=== PATIENT | male | born 1985 | race Caucasian/White ===

== ENCOUNTER 2016-03-15 19:51 | Emergency (ER) | payer OTHER ==
[2016-03-15] MEDS ORDERED: FENTANYL CITRATE INJ/PF 100 MCG/2 ML AMPUL IV ONE (20:12)
[2016-03-15] MEDS ORDERED: DIPH/PERTUSS(ACELL)/TETANUS VAC/PF 0.5 ML SYR (>=10YO) IM ONE (20:12)
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
[2016-03-15 21:13] LABS: ABSOLUTE EOSINOPHILS # (AUTO) 0.1 10^3/uL (0.0-0.6); ABSOLUTE LYMPHOCYTES (AUTO) 1.5 10^3/uL (0.5-4.7); ABSOLUTE MONOCYTES (AUTO) 0.4 10^3/uL (0.1-1.4); ABSOLUTE NEUT (AUTO) 3.2 10^3/uL (1.7-8.2); BASOPHILS % (AUTO) 0.8 % (0-2); EOSINOPHILS % (AUTO) 1.2 % (0-6); HEMATOCRIT 46.2 % (37.9-51.0); HEMOGLOBIN 14.7 g/dL (13.5-17.0); HGB HCT DIFFERENCE -2.1; LYMPHOCYTES % (AUTO) 28.8 % (13-45); MEAN CORPUSCULAR HEMOGLOBIN 30.6 pg (27.0-33.4); MEAN CORPUSCULAR HGB CONC 31.8 g/dL (32.0-36.0); MEAN CORPUSCULAR VOLUME 96 fl (80-97); MONOCYTES % (AUTO) 6.9 % (3-13); RED CELL DISTRIBUTION WIDTH 13.2 % (11.5-14.0); SEGMENTED NEUTROPHILS % (AUTO) 62.3 % (42-78); WHITE BLOOD COUNT 5.1 10^3/uL (4.0-10.5)
[2016-03-15 21:32] LABS: ALANINE AMINOTRANSFERASE 32 U/L (21-72); ALBUMIN 4.5 g/dL (3.5-5.0); ALKALINE PHOSPHATASE 47 U/L (38-126); ANION GAP 18 (5-19); ASPARTATE AMINO TRANSFERASE 33 U/L (17-59); BILIRUBIN,TOTAL 0.6 mg/dL (0.2-1.3); BLOOD UREA NITROGEN 13 mg/dL (7-20); CALCIUM 8.9 mg/dL (8.4-10.2); CARBON DIOXIDE 19 mmol/L (22-30); CHLORIDE 108 mmol/L (98-107); CREATININE RESULT 1.12 mg/dL (0.52-1.25); GLUCOSE 129 mg/dL (75-110); POTASSIUM 4.6 mmol/L (3.6-5.0); SODIUM 145.1 mmol/L (137-145)
[2016-03-15] MEDS ORDERED: KETOROLAC TROMETHAMINE INJ/PF 30 MG/1 ML SDV IV ONE (22:31)
[2016-03-15] MEDS ORDERED: OXYCODONE-ACETAMINOPHEN 5-325 MG TABLET PO ONE (22:31)
[2016-03-15] MEDS ORDERED: HYDROCODONE/ACETAMINOPHEN 5-325 MG 6 TAB/DSPK PO PRN (23:13)
== END 2016-03-16 00:13 | disposition home or self-care (01) ==
LOC: ER 19:51
DX: S06.9X9A Unspecified intracranial injury with loss of consciousness of unspecified duration, initial encounter (principal); S20.212A Contusion of left front wall of thorax, initial encounter; S39.91XA Unspecified injury of abdomen, initial encounter; V19.60XA Unspecified pedal cyclist injured in collision with unspecified motor vehicles in traffic accident, initial encounter; Y93.55 Activity, bike riding; R07.81 Pleurodynia; R55 Syncope and collapse; R10.12 Left upper quadrant pain; R10.32 Left lower quadrant pain; M25.532 Pain in left wrist; M25.572 Pain in left ankle and joints of left foot; R00.0 Tachycardia, unspecified; M54.5 Low back pain; M54.6 Pain in thoracic spine; M79.662 Pain in left lower leg; Z23 Encounter for immunization
CPT/HCPCS: 36415; 85025; 80053; 73610; 73590; 73110; 70450; 71260; 72125; 74177; J3010; J1885

== ENCOUNTER 2016-03-17 21:12 | Emergency (ER) | payer SELFPAY ==
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
[2016-03-17] MEDS ORDERED: OXYCODONE-ACETAMINOPHEN 5-325 MG TABLET PO ONE (23:29)
[2016-03-18 00:36] LABS: HEMATOCRIT 42.9 % (37.9-51.0); HEMOGLOBIN 14.4 g/dL (13.5-17.0); HGB HCT DIFFERENCE 0.3; MEAN CORPUSCULAR HEMOGLOBIN 31.1 pg (27.0-33.4); MEAN CORPUSCULAR HGB CONC 33.6 g/dL (32.0-36.0); MEAN CORPUSCULAR VOLUME 93 fl (80-97); RED BLOOD COUNT 4.64 10^6/uL (4.35-5.55); RED CELL DISTRIBUTION WIDTH 12.8 % (11.5-14.0); WHITE BLOOD COUNT 5.8 10^3/uL (4.0-10.5)
[2016-03-18 01:26] VITALS: BP 102/76
--- NOTE | 2016-03-18 11:02 | EKG REPORT ---
SEVERITY:- NORMAL ECG - SINUS RHYTHM ST ELEV, PROBABLE NORMAL EARLY REPOL PATTERN : Confirmed by: Marky Chowdary MD 18-Mar-2016 11:01:40
== END 2016-03-18 01:27 | disposition home or self-care (01) ==
LOC: ER 21:12
DX: S20.212A Contusion of left front wall of thorax, initial encounter (principal); R55 Syncope and collapse; R07.81 Pleurodynia; R42 Dizziness and giddiness; M25.512 Pain in left shoulder; M25.552 Pain in left hip; W19.XXXA Unspecified fall, initial encounter
CPT/HCPCS: 36415; 85027; 93005; 93010; 99284

== ENCOUNTER 2016-08-21 10:51 | Emergency (ER) | payer SELFPAY ==
[2016-08-21] MEDS ORDERED: TRAMADOL HCL 50 MG TABLET PO ONE (11:52)
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
--- NOTE | 2016-08-21 12:52 | RADIOLOGY REPORT (SQ) ---
EXAM DESCRIPTION: SHOULDER LEFT 2 OR MORE VIEWS COMPLETED DATE/TIME: 08/21/2016 12:34 pm REASON FOR STUDY: pain, had a AC unit fall on him COMPARISON: None. NUMBER OF VIEWS: Three views. TECHNIQUE: Internal rotation, external rotation, and Y view images acquired of the left shoulder. LIMITATIONS: None. FINDINGS: MINERALIZATION: Normal. BONES: No acute fracture or dislocation. No worrisome bone lesions. JOINTS: No dislocation. VISUALIZED LUNGS AND RIBS: No pneumothorax. No rib fracture. SOFT TISSUES: No radiopaque foreign body. OTHER: No other significant finding. IMPRESSION: NEGATIVE STUDY OF THE LEFT SHOULDER. NO RADIOGRAPHIC EVIDENCE OF ACUTE INJURY. TECHNICAL DOCUMENTATION: JOB ID: [id number] [employer]- All Rights Reserved
--- NOTE | 2016-08-21 13:31 | ER Document Report ---
HPI - HPI Patient complains to provider of: left arm pain Onset: Just prior to arrival - had an AC unit fall on his left shoulder and arm Onset/Duration: Sudden Quality of pain: Achy, Sharp, Stabbing Pain Level: 5 Exacerbated by: Movement, Walking Relieved by: Remaining still Similar symptoms previously: No Recently seen / treated by doctor: No - CARDIOVASCULAR Cardiovascular: DENIES: Chest pain - REPRODUCTIVE Reproductive: DENIES: : - DERM Skin Color: Normal Past Medical History - Social History Smoking Status: Never Smoker Chew tobacco use (# tins/day): No Frequency of alcohol use: None Drug Abuse: None Family History: Arthritis, CVA, Hypertension Patient has suicidal ideation: No Patient has homicidal ideation: No Pulmonary Medical History: Reports: Hx Bronchitis, Hx Pneumonia Renal/ Medical History: Denies: Hx Peritoneal Dialysis GI Medical History: Reports: Hx Gastroesophageal Reflux Disease, Hx Irritable Bowel, Hx Ulcer, Hx Endoscopy Musculoskeltal Medical History: Reports Hx Musculoskeletal Deformity, Reports Hx Musculoskeletal Trauma Psychiatric Medical History: Reports: Hx Anxiety, Hx Depression - anxiety, panic attacks Traumatic Medical History: Reports: Hx Fractures - Left elbow and point rotator cuff Surgical Hx: Negative - Immunizations Immunizations up to date: Yes Hx Diphtheria, Pertussis, Tetanus Vaccination: Yes Vertical Provider Document - CONSTITUTIONAL Agree With Documented VS: Yes Exam Limitations: No Limitations General Appearance: WD/WN, No Apparent Distress - INFECTION CONTROL TRAVEL OUTSIDE OF THE [place] IN LAST 30 DAYS: No - HEENT HEENT: Atraumatic, Normocephalic - RESPIRATORY O2 Sat by Pulse Oximetry: 98 - CARDIOVASCULAR Pulses: Normal: Radial Notes: cap refill < 2 seconds - MUSCULOSKELETAL/EXTREMETIES Musculoskeletal/Extremeties: Tender - along anterior shoulder and arm, No Edema. negative: Eccymosis - ROM intact but guarded 2/2 pain - NEURO Level of Consciousness: Awake, Alert, Appropriate Motor/Sensory: No Motor Deficit, No Sensory Deficit - DERM Integumentary: Warm, Dry, No Rash. negative: Laceration Course - Re-evaluation Re-evalutation: 08/21/16 13:28 Evidence of fracture dislocation noted on x-ray. Patient placed in sling for comfort given shoulder exercises instruction to follow-up with primary care. - Vital Signs Vital signs: Temp Pulse Resp BP Pulse Ox 99.7 F 105 H 20 132/90 H 98 08/21/16 11:00 08/21/16 11:00 08/21/16 11:00 08/21/16 11:00 08/21/16 11:00 - Diagnostic Test Radiology reviewed: Image reviewed, Reports reviewed Discharge - Discharge Clinical Impression: Shoulder injury, Contusion Condition: Good Disposition: HOME, SELF-CARE Instructions: Contusion ([facility]), Crush Injury ([facility]), Exercise Program for the Shoulder ([facility]), Ice Packs ([facility]) Prescriptions: Tramadol HCl 50 mg PO Q8HP PRN #10 tablet PRN Reason: Ibuprofen [Motrin 800 mg Tablet] 800 mg PO Q8H PRN #30 tab PRN Reason: Forms: Elevated Blood Pressure, Return to Work, Special Work Note Referrals: [facility] [Provider Group] - Follow up as needed
[2016-08-21 15:23] VITALS: BP 132/78
== END 2016-08-21 13:30 | disposition home or self-care (01) ==
LOC: ER 10:51
DX: S40.019A Contusion of unspecified shoulder, initial encounter (principal); W20.8XXA Other cause of strike by thrown, projected or falling object, initial encounter; Y93.89 Activity, other specified; Y99.0 Civilian activity done for income or pay; Z87.81 Personal history of (healed) traumatic fracture
CPT/HCPCS: 99283

== ENCOUNTER 2016-09-13 19:11 | Inpatient (IN) | payer SELFPAY ==
[2016-09-13] MEDS ORDERED: NORMAL SALINE 1000 ML 2,000 ML IV ONE (19:28)
--- NOTE | 2016-09-13 19:30 | ER Document Report ---
ED General - General Stated Complaint: POSSIBLE HEAT EXHAUSTION Time Seen by Provider: 09/13/16 19:23 Notes: Patient is a 31-year-old male without past medical history who presents with diffuse muscle cramping and episode of syncope. Patient states he has been outside working all day today for approximately 12 hours. Describes his muscle cramping as being diffuse, moderate to severe and constant. States he has been trying to drink plenty of fluids but notes for the past 2 hours he is no longer been sweating and then when he was finishing up at work became extremely lightheaded and did have an episode of syncope. No history of similar symptoms in the past. Nothing has improved or worsened his symptoms. Denies any chest pain or shortness of breath. He has not seen his primary doctor regarding today 's concerns. TRAVEL OUTSIDE OF THE [place] IN LAST 30 DAYS: No - Related Data Allergies/Adverse Reactions: Penicillins Allergy (Verified 08/21/16 11:02) Past Medical History - General Information source: Patient - Social History Smoking Status: Current Every Day Smoker Frequency of alcohol use: Rare Lives with: Spouse/Significant other Family History: Arthritis, CVA, Hypertension Pulmonary Medical History: Reports: Hx Bronchitis, Hx Pneumonia Renal/ Medical History: Denies: Hx Peritoneal Dialysis GI Medical History: Reports: Hx Gastroesophageal Reflux Disease, Hx Irritable Bowel, Hx Ulcer, Hx Endoscopy Musculoskeltal Medical History: Reports Hx Musculoskeletal Deformity, Reports Hx Musculoskeletal Trauma Psychiatric Medical History: Reports: Hx Anxiety, Hx Depression - anxiety, panic attacks Traumatic Medical History: Reports: Hx Fractures - Left elbow and point rotator cuff - Immunizations Immunizations up to date: Yes Hx Diphtheria, Pertussis, Tetanus Vaccination: Yes Review of Systems - Review of Systems Notes: Constitutional: Negative for fever. HENT: Negative for sore throat. Eyes: Negative for visual changes. Cardiovascular: Negative for chest pain. Respiratory: Negative for shortness of breath. Gastrointestinal: Negative for abdominal pain, positive for nausea Genitourinary: Negative for dysuria. Musculoskeletal: Negative for back pain. Skin: Negative for rash. Neurological: Negative for headaches, weakness or numbness. 10 point ROS negative except as marked above and in HPI. Physical Exam - Vital signs Vitals: Temp Resp BP Pulse Ox 97.8 F 15 130/85 H 98 09/13/16 19:34 09/13/16 19:34 09/13/16 19:34 09/13/16 19:34 Interpretation: Normal Notes: PHYSICAL EXAMINATION: GENERAL: Appears mildly uncomfortable but in no acute HEAD: Atraumatic, normocephalic. EYES: Pupils equal round and reactive to light, extraocular movements intact, sclera anicteric, conjunctiva are normal. ENT: nares patent, oropharynx clear without exudates. Moderately dry mucous membranes. NECK: Normal range of motion, supple without lymphadenopathy LUNGS: Breath sounds clear to auscultation bilaterally and equal. No wheezes rales or rhonchi. HEART: Regular rate and rhythm without murmurs ABDOMEN: Soft, nontender, normoactive bowel sounds. No guarding, no rebound. No masses appreciated. EXTREMITIES: Normal range of motion, no pitting or edema. No cyanosis. NEUROLOGICAL: No focal neurological deficits. Moves all extremities spontaneously and on command. PSYCH: Normal mood, normal affect. SKIN: Warm, Dry, normal turgor, no rashes or lesions noted. Course - Re-evaluation Re-evalutation: 09/13/16 19:29 Patient presents with signs and symptoms consistent with dehydration after working outside in the heat all day today. Does complain of lightheadedness, clotting of the vision in the setting of that lightheadedness, as well as a sensation of severe dehydration. Patient did have a syncopal episode today likely secondary to dehydration. On examination he is overall well in appearance although mildly tachycardic, obvious dry oral mucosa. Will proceed with basic laboratories, IV fluids, EKG, continue on monitoring specialist, p.o. challenge and reassess. 09/13/16 20:35 Patient's laboratories do demonstrate an acute kidney injury, creatinine is 2.92. This level of elevation is significant and is consistent with a prerenal azotemia. Patient is receiving IV fluids here in the emergency department but will likely require admission given such a significant elevation of creatinine. 09/13/16 20:44 Patient is agreeable to admission. He has still not urinated despite receiving 2 L of IV fluids. I discussed with Dr. Stone who will admit. - Vital Signs Vital signs: Temp Pulse Resp BP Pulse Ox 98.0 F 77 16 130/63 H 99 09/13/16 23:21 09/13/16 23:21 09/13/16 23:21 09/13/16 23:21 09/13/16 23:21 - Laboratory Result Diagrams: 09/13/16 19:55 Laboratory results interpreted by me: 09/13/16 09/13/16 19:55 19:55 BUN 22 H Creatinine 2.92 H Est GFR ( Amer) 30 L Est GFR (Non-Af Amer) 25 L Phosphorus 4.8 H Creatine Kinase 346 H - EKG Interpretation by Me Additional EKG results interpreted by me: 09/13/16 20:44 Sinus rhythm. Rate 73. No ST elevations or depressions. QTC is 437. Discharge - Discharge Clinical Impression: Dehydration, Acute kidney injury Condition: Fair Disposition: ADMITTED OBSERVATION Admitting Provider: Hospitalist [facility] Unit Admitted: Telemetry
[2016-09-13 20:19] LABS: ANION GAP 17 (5-19); BLOOD UREA NITROGEN 22 mg/dL (7-20); CALCIUM 10.1 mg/dL (8.4-10.2); CARBON DIOXIDE 24 mmol/L (22-30); CHLORIDE 98 mmol/L (98-107); CREATINE KINASE 346 U/L (55-170); CREATININE RESULT 2.92 mg/dL (0.52-1.25); GLUCOSE 104 mg/dL (75-110); POTASSIUM 4.5 mmol/L (3.6-5.0); SODIUM 139.3 mmol/L (137-145)
[2016-09-13] MEDS ORDERED: MAG HYDROX/AL HYDROX/SIMETH SUSP 30 ML UDCUP PO PRN (20:45)
[2016-09-13] MEDS ORDERED: ONDANSETRON HCL INJ/PF 4 MG/2 ML SDV IV PRN (20:45)
[2016-09-13] MEDS ORDERED: NORMAL SALINE 1000 ML 1,000 ML IV SCH (20:45)
[2016-09-13] MEDS ORDERED: ACETAMINOPHEN 325 MG TABLET PO PRN (20:45)
[2016-09-13 21:08] LABS: MAGNESIUM 2.2 mg/dL (1.6-2.3); PHOSPHORUS 4.8 mg/dL (2.5-4.5)
[2016-09-13] MEDS ORDERED: HEPARIN SOD (PORCINE) 5,000 UNIT/ML 1 ML SYRINGE SUBCUT ONE (23:30)
[2016-09-14 00:20] LABS: URINE BARBITURATES SCREEN NEGATIVE; URINE METHADONE SCREEN NEGATIVE; URINE OPIATES LOW NEGATIVE; URINE PHENCYCLIDINE SCREEN NEGATIVE
[2016-09-14] MEDS: HEPARIN SOD (PORCINE) 5,000 UNIT/ML 1 ML SYRINGE SUBCUT SCH ×2 (05:49→15:16)
--- NOTE | 2016-09-14 07:16 | PDOC H&P ---
History of Present Illness Admission Date/PCP: 09/13/16 20:45 Patient complains of: Syncope History of Present Illness: RADHA HELTON JR is a 31 year old male without past medical history who presents to the emergency room after prolonged heat exposure. 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 He sustained no injury. In the emergency room he was found to have mild orthostatic hypotension and acute renal failure with a creatinine 2.9. Patient denies any medication use or previous renal problem. Past Medical History Pulmonary Medical History: Reports: Bronchitis, Pneumonia GI Medical History: Reports: Gastroesophageal Reflux Disease Psychiatric Medical History: Reports: Depression - anxiety, panic attacks Social History Information Source: Patient Lives with: Spouse/Significant other Smoking Status: Current Every Day Smoker Frequency of Alcohol Use: Occasional Hx Recreational Drug Use: No - Advance Directive Resuscitation Status: Full Code Family History Family History: Arthritis, CVA, Hypertension Parental Family History Reviewed: Yes Children Family History Reviewed: Yes Sibling(s) Family History Reviewed.: Yes Medication/Allergy Home Medications: Naproxen 500 mg PO BID #20 tablet 04/06/15 Oxycodone HCl/Acetaminophen [Percocet 10-325 Mg Tablet] 10 mg PO QID PRN #20 tablet 04/06/15 Albuterol Sulfate [Proair HFA Inhalation Aerosol 8.5 gm MDI] 2 puff IH Q4H PRN # 1 mdi 05/09/15 Promethazine HCl [Phenergan 25 mg Tablet] 25 mg PO Q6H PRN #15 tablet 05/09/15 Hydrocodone/Acetaminophen [[place] 5-325 Tablet] 1 each PO Q6 #15 tablet 06/16/15 Ondansetron [Zofran Odt] 8 mg PO QID #15 tab.rapdis 06/16/15 Dicyclomine HCl [Bentyl 20 mg Tablet] 40 mg PO QIDP PRN #60 tablet 06/24/15 Promethazine HCl [Phenergan 25 mg Tablet] 1 - 2 tab PO Q6H PRN #15 tablet Hydrocodone/Acetaminophen [[place] 5-325 mg Tablet] 1 - 2 tab PO ASDIR #10 tablet 09/14/15 Methocarbamol [Robaxin 750 mg Tablet] 750 mg PO ASDIR PRN #40 tablet 09/14/15 Clindamycin HCl 300 mg PO QID #28 capsule 10/29/15 Sulfamethoxazole/Trimethoprim [Bactrim Ds Tablet] 1 tab PO BID #14 tablet Hydrocodone/Acetaminophen [[place] 5-325 Tablet] 1 - 2 tab PO Q4HP PRN #20 tablet 03/15/16 Ibuprofen [Motrin 800 mg Tablet] 800 mg PO Q8H PRN #30 tab 03/18/16 Ibuprofen [Motrin 800 mg Tablet] 800 mg PO Q8H PRN #30 tab 08/21/16 Tramadol HCl 50 mg PO Q8HP PRN #10 tablet 08/21/16 Allergies/Adverse Reactions: Penicillins Allergy (Verified 08/21/16 11:02) Review of Systems Constitutional: ABSENT: chills, fever(s), headache(s), weight gain, weight loss Eyes: ABSENT: visual disturbances Ears: ABSENT: hearing changes Cardiovascular: ABSENT: chest pain, dyspnea on exertion, edema, orthropnea, palpitations Respiratory: ABSENT: cough, hemoptysis Gastrointestinal: ABSENT: abdominal pain, constipation, diarrhea, hematemesis, hematochezia, nausea, vomiting Genitourinary: ABSENT: dysuria, hematuria Musculoskeletal: ABSENT: joint swelling Integumentary: ABSENT: rash, wounds Neurological: ABSENT: abnormal gait, abnormal speech, confusion, dizziness, focal weakness, syncope Psychiatric: ABSENT: anxiety, depression, homidical ideation, suicidal ideation Endocrine: ABSENT: cold intolerance, heat intolerance, polydipsia, polyuria Hematologic/Lymphatic: ABSENT: easy bleeding, easy bruising Physical Exam Vital Signs: Temp Pulse Resp BP Pulse Ox 98.0 F 77 16 130/63 H 99 09/13/16 23:21 09/13/16 23:21 09/13/16 23:21 09/13/16 23:21 09/13/16 23:21 Intake & Output 09/12/16 09/13/16 09/14/16 11:59 11:59 11:59 Intake Total 3320 Balance 3320 Weight 64 kg General appearance: PRESENT: no acute distress, well-developed, well-nourished Head exam: PRESENT: atraumatic, normocephalic Eye exam: PRESENT: conjunctiva pink, EOMI, PERRLA. ABSENT: scleral icterus Ear exam: PRESENT: normal external ear exam Mouth exam: PRESENT: moist, tongue midline Neck exam: ABSENT: carotid bruit, JVD, lymphadenopathy, thyromegaly Respiratory exam: PRESENT: clear to auscultation sean. ABSENT: rales, rhonchi, wheezes Cardiovascular exam: PRESENT: RRR. ABSENT: diastolic murmur, rubs, systolic murmur Pulses: PRESENT: normal dorsalis pedis pul Vascular exam: PRESENT: normal capillary refill GI/Abdominal exam: PRESENT: normal bowel sounds, soft. ABSENT: distended, guarding, mass, organolmegaly, rebound, tenderness Rectal exam: PRESENT: deferred Extremities exam: PRESENT: full ROM. ABSENT: calf tenderness, clubbing, pedal edema Neurological exam: PRESENT: alert, awake, oriented to person, oriented to place , oriented to time, oriented to situation, CN II-XII grossly intact. ABSENT: motor sensory deficit Psychiatric exam: PRESENT: appropriate affect, normal mood. ABSENT: homicidal ideation, suicidal ideation Skin exam: PRESENT: dry, intact, warm. ABSENT: cyanosis, rash Results Laboratory Results: 09/14/16 01:44 Creatine Kinase 304 H Assessment & Plan - Diagnosis (1) Acute kidney injury Is this a current diagnosis for this admission?: YesPlan: Likely secondary to profound dehydration, urinalysis pending IV fluid challenge normal saline at 500 hour 3 L with reevaluation of chemistry and urinalysis (2) Rhabdomyolysis Is this a current diagnosis for this admission?: YesPlan: Secondary to dehydration and physical exertion, IV fluid challenge initiated, follow-up total CK (3) Dehydration Plan: Aggressive rehydration crystalloid reevaluation chemistry and education. - Time Time Spent: 30 to 50 Minutes - Inpatient Certification Medical Necessity: Need Close Monitoring Due to Risk of Patient Decompensation
[2016-09-14 07:53] LABS: ABSOLUTE EOSINOPHILS # (AUTO) 0.1 10^3/uL (0.0-0.6); ABSOLUTE LYMPHOCYTES (AUTO) 1.5 10^3/uL (0.5-4.7); ABSOLUTE MONOCYTES (AUTO) 0.9 10^3/uL (0.1-1.4); ABSOLUTE NEUT (AUTO) 4.8 10^3/uL (1.7-8.2); BASOPHILS % (AUTO) 0.4 % (0-2); EOSINOPHILS % (AUTO) 1.5 % (0-6); HEMATOCRIT 43.2 % (37.9-51.0); HEMOGLOBIN 14.2 g/dL (13.5-17.0); HGB HCT DIFFERENCE -0.6; LYMPHOCYTES % (AUTO) 20.5 % (13-45); MEAN CORPUSCULAR HEMOGLOBIN 31.8 pg (27.0-33.4); MEAN CORPUSCULAR HGB CONC 32.9 g/dL (32.0-36.0); MEAN CORPUSCULAR VOLUME 97 fl (80-97); MONOCYTES % (AUTO) 11.9 % (3-13); RED BLOOD COUNT 4.46 10^6/uL (4.35-5.55); RED CELL DISTRIBUTION WIDTH 12.9 % (11.5-14.0); SEGMENTED NEUTROPHILS % (AUTO) 65.7 % (42-78); WHITE BLOOD COUNT 7.2 10^3/uL (4.0-10.5)
[2016-09-14 08:16] LABS: ANION GAP 10 (5-19); BLOOD UREA NITROGEN 16 mg/dL (7-20); CALCIUM 7.9 mg/dL (8.4-10.2); CARBON DIOXIDE 21 mmol/L (22-30); CHLORIDE 107 mmol/L (98-107); CREATINE KINASE 408 U/L (55-170); CREATININE RESULT 1.08 mg/dL (0.52-1.25); GLUCOSE 124 mg/dL (75-110); SODIUM 137.7 mmol/L (137-145)
[2016-09-14] MEDS: DOCUSATE SODIUM 100 MG CAPSULE PO SCH ×2 (09:09→17:45)
[2016-09-14] MEDS ORDERED: ONDANSETRON HCL INJ/PF 4 MG/2 ML SDV IV PRN (14:21)
[2016-09-14] MEDS ORDERED: MAG HYDROX/AL HYDROX/SIMETH SUSP 30 ML UDCUP PO PRN (14:21)
[2016-09-14] MEDS ORDERED: NORMAL SALINE 1000 ML 1,000 ML IV PRN (15:05)
--- NOTE | 2016-09-14 17:08 | PDOC DISCHARGE SUMMARY ---
General - Admit/Disc Date/PCP Admission Date/Primary Care Provider: 09/13/16 20:45 NO PCP Discharge Date: 09/14/16 - Discharge Diagnosis (1) Acute kidney injury Is this a current diagnosis for this admission?: Yes (2) Dehydration Is this a current diagnosis for this admission?: Yes (3) Rhabdomyolysis Is this a current diagnosis for this admission?: Yes (4) Heat stroke Is this a current diagnosis for this admission?: Yes - Additional Information Resuscitation Status: Full Code Discharge Diet: Regular Discharge Activity: Activity As Tolerated Home Medications: No Home Medications 09/14/16 History of Present Illness History of Present Illness: RADHA HELTON JR is a 31 year old male without past medical history who presents to the emergency room after prolonged heat exposure. 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 He sustained no injury. In the emergency room he was found to have mild orthostatic hypotension and acute renal failure with a creatinine 2.9. Patient denies any medication use or previous renal problem. Hospital Course Hospital Course: Patient was admitted for IV hydration. He was rehydrated and his creatinine improved as did his CPK. Patient's electrolytes were normal and he had no arrhythmia. He was discharged home in stable condition. He reported improvement of his muscle cramps. Physical Exam Vital Signs: Temp Pulse Resp BP Pulse Ox 97.6 F 66 16 115/76 100 09/14/16 15:13 09/14/16 15:13 09/14/16 15:13 09/14/16 15:13 09/14/16 15:13 Intake & Output 09/13/16 09/14/16 09/15/16 06:59 06:59 06:59 Intake Total 3320 1475 Balance 3320 1475 Weight 64 kg Exam: General: Awake alert and oriented x3, no acute respiratory distress HEENT: AT/NC, PERRL, EOMI, oropharynx is moist, pink, no scleral icterus, no conjunctival injection Neck: No JVD, trachea midline Chest: Clear to auscultation bilaterally, no wheezes rhonchi or rales CV: Regular rate and rhythm, normal S1 and S2, no murmur, rub, or gallop Abdomen: Soft, nontender to palpation, nondistended, active bowel sounds; no rebound, rigidity, or guarding Extremities: No cyanosis, clubbing or edema Neuro: Cranial nerves II through XII are grossly intact without focal deficits; awake alert and orientedx3 Psych: Normal mood and affect Results Laboratory Results: 09/14/16 07:39 09/14/16 07:39 09/14/16 09/14/16 07:39 07:39 WBC 7.2 RBC 4.46 Hgb 14.2 Hct 43.2 MCV 97 MCH 31.8 MCHC 32.9 RDW 12.9 Plt Count 155 Seg Neutrophils % 65.7 Lymphocytes % 20.5 Monocytes % 11.9 Eosinophils % 1.5 Basophils % 0.4 Absolute Neutrophils 4.8 Absolute Lymphocytes 1.5 Absolute Monocytes 0.9 Absolute Eosinophils 0.1 Absolute Basophils 0.0 Sodium 137.7 Potassium 4.0 Chloride 107 Carbon Dioxide 21 L Anion Gap 10 BUN 16 Creatinine 1.08 Est GFR ( Amer) > 60 Est GFR (Non-Af Amer) > 60 Glucose 124 H Calcium 7.9 L 09/14/16 09/14/16 09/14/16 01:44 07:39 14:11 Creatine Kinase 304 H 408 H 310 H Qualifiers PATEINT BEING DISCHARGED WITH ANY OF THE FOLLOWING DIAGNOSIS?: No Plan Time Spent: Less than 30 Minutes
[2016-09-14 18:56] VITALS: BP 104/66
--- NOTE | 2016-09-15 05:58 | EKG REPORT ---
SEVERITY:- NORMAL ECG - SINUS RHYTHM ST ELEV, PROBABLE NORMAL EARLY REPOL PATTERN : Confirmed by: Irasema Rojas MD 15-Sep-2016 05:58:08
== END 2016-09-14 19:19 | disposition home or self-care (01) | DRG 683 ==
LOC: ER 19:11 → EH 20:45 → 4S 22:55
PROVIDERS: ADMIT Internal Medicine; ATTEND Internal Medicine
DX: N17.9 Acute kidney failure, unspecified (principal); M62.82 Rhabdomyolysis; K21.9 Gastro-esophageal reflux disease without esophagitis; F32.9 Major depressive disorder, single episode, unspecified; E86.0 Dehydration; F17.210 Nicotine dependence, cigarettes, uncomplicated; I95.1 Orthostatic hypotension; F41.9 Anxiety disorder, unspecified; Z86.73 Personal history of transient ischemic attack (TIA), and cerebral infarction without residual deficits; Z82.49 Family history of ischemic heart disease and other diseases of the circulatory system; Z82.61 Family history of arthritis; Z88.0 Allergy status to penicillin
CPT/HCPCS: 36415; 80048; 80307; 82550; 83735; 84100; 85025; 93005; 93010; 96360; 96361; 99285; J1644; J7030

== ENCOUNTER 2016-09-21 14:50 | Emergency (ER) | payer SELFPAY ==
[2016-09-21 16:09] LABS: ABSOLUTE BASOPHILS # (AUTO) 0.1 10^3/uL (0.0-0.2); ABSOLUTE EOSINOPHILS # (AUTO) 0.1 10^3/uL (0.0-0.6); ABSOLUTE LYMPHOCYTES (AUTO) 1.5 10^3/uL (0.5-4.7); ABSOLUTE MONOCYTES (AUTO) 0.9 10^3/uL (0.1-1.4); ABSOLUTE NEUT (AUTO) 3.3 10^3/uL (1.7-8.2); BASOPHILS % (AUTO) 0.9 % (0-2); EOSINOPHILS % (AUTO) 2.2 % (0-6); HEMATOCRIT 43.5 % (37.9-51.0); HEMOGLOBIN 14.8 g/dL (13.5-17.0); HGB HCT DIFFERENCE 0.9; LYMPHOCYTES % (AUTO) 25.2 % (13-45); MEAN CORPUSCULAR HEMOGLOBIN 32.3 pg (27.0-33.4); MEAN CORPUSCULAR VOLUME 95 fl (80-97); MONOCYTES % (AUTO) 15.4 % (3-13); RED BLOOD COUNT 4.57 10^6/uL (4.35-5.55); RED CELL DISTRIBUTION WIDTH 12.7 % (11.5-14.0); SEGMENTED NEUTROPHILS % (AUTO) 56.3 % (42-78); WHITE BLOOD COUNT 5.8 10^3/uL (4.0-10.5)
[2016-09-21 16:11] LABS: APPEARANCE,URINE CLEAR; BILIRUBIN,URINE NEGATIVE (NEGATIVE); GLUCOSE, URINE NEGATIVE (NEGATIVE); KETONES,URINE NEGATIVE (NEGATIVE); LEUKOCYTE ESTERASE,URINE NEGATIVE (NEGATIVE); NITRITE,URINE NEGATIVE (NEGATIVE); PROTEIN,URINE NEGATIVE (NEGATIVE); URINE SPECIFIC GRAVITY 1.019; UROBILINOGEN,URINE NEGATIVE mg/dL (<2.0)
[2016-09-21 16:25] LABS: ALANINE AMINOTRANSFERASE 35 U/L (21-72); ALBUMIN 4.2 g/dL (3.5-5.0); ALKALINE PHOSPHATASE 49 U/L (38-126); ANION GAP 8 (5-19); ASPARTATE AMINO TRANSFERASE 26 U/L (17-59); BILIRUBIN,DIRECT 0.3 mg/dL (0.0-0.4); BILIRUBIN,TOTAL 0.4 mg/dL (0.2-1.3); BLOOD UREA NITROGEN 11 mg/dL (7-20); CALCIUM 9.2 mg/dL (8.4-10.2); CARBON DIOXIDE 28 mmol/L (22-30); CHLORIDE 103 mmol/L (98-107); CREATINE KINASE 261 U/L (55-170); CREATININE RESULT 0.99 mg/dL (0.52-1.25); GLUCOSE 78 mg/dL (75-110); POTASSIUM 4.9 mmol/L (3.6-5.0); SODIUM 138.8 mmol/L (137-145); TOTAL PROTEIN 7.1 g/dL (6.3-8.2)
[2016-09-21 16:26] VITALS: BP 109/74
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
== END 2016-09-21 16:37 | disposition home or self-care (01) ==
LOC: ER 14:50
DX: R55 Syncope and collapse (principal)
CPT/HCPCS: 36415; 80053; 81001; 82550; 85025; 99284

== ENCOUNTER 2017-01-22 10:11 | Emergency (ER) | payer SELFPAY ==
[2017-01-22] MEDS: NORMAL SALINE 1000 ML 1,000 ML IV PRN ×2 (11:00→11:24)
[2017-01-22 11:02] LABS: ABSOLUTE LYMPHOCYTES (AUTO) 0.9 10^3/uL (0.5-4.7); ABSOLUTE MONOCYTES (AUTO) 0.6 10^3/uL (0.1-1.4); ABSOLUTE NEUT (AUTO) 3.5 10^3/uL (1.7-8.2); BASOPHILS % (AUTO) 0.5 % (0-2); EOSINOPHILS % (AUTO) 0.4 % (0-6); HEMATOCRIT 48.9 % (37.9-51.0); HEMOGLOBIN 16.9 g/dL (13.5-17.0); HGB HCT DIFFERENCE 1.8; LYMPHOCYTES % (AUTO) 18.4 % (13-45); MEAN CORPUSCULAR HEMOGLOBIN 31.6 pg (27.0-33.4); MEAN CORPUSCULAR HGB CONC 34.5 g/dL (32.0-36.0); MEAN CORPUSCULAR VOLUME 92 fl (80-97); MONOCYTES % (AUTO) 11.5 % (3-13); RED BLOOD COUNT 5.35 10^6/uL (4.35-5.55); SEGMENTED NEUTROPHILS % (AUTO) 69.2 % (42-78)
[2017-01-22] MEDS ORDERED: ONDANSETRON HCL INJ/PF 4 MG/2 ML SDV IV ONE (11:02)
[2017-01-22 11:32] LABS: ALANINE AMINOTRANSFERASE 32 U/L (21-72); ALBUMIN 4.4 g/dL (3.5-5.0); ALKALINE PHOSPHATASE 73 U/L (38-126); ANION GAP 12 (5-19); ASPARTATE AMINO TRANSFERASE 42 U/L (17-59); BILIRUBIN,DIRECT 0.4 mg/dL (0.0-0.4); BILIRUBIN,TOTAL 1.3 mg/dL (0.2-1.3); BLOOD UREA NITROGEN 12 mg/dL (7-20); CALCIUM 8.8 mg/dL (8.4-10.2); CARBON DIOXIDE 26 mmol/L (22-30); CHLORIDE 103 mmol/L (98-107); CREATINE KINASE 117 U/L (55-170); GLUCOSE 105 mg/dL (75-110); POTASSIUM 3.9 mmol/L (3.6-5.0); SODIUM 140.6 mmol/L (137-145); TOTAL PROTEIN 7.3 g/dL (6.3-8.2)
[2017-01-22] MEDS ORDERED: KETOROLAC TROMETHAMINE INJ/PF 30 MG/1 ML SDV IV ONE (11:42)
[2017-01-22] MEDS ORDERED: METHOCARBAMOL 750 MG TABLET PO ONE (11:42)
[2017-01-22 11:43] LABS: APPEARANCE,URINE CLEAR; BILIRUBIN,URINE NEGATIVE (NEGATIVE); GLUCOSE, URINE NEGATIVE (NEGATIVE); KETONES,URINE 20 mg/dL (NEGATIVE); LEUKOCYTE ESTERASE,URINE NEGATIVE (NEGATIVE); NITRITE,URINE NEGATIVE (NEGATIVE); PROTEIN,URINE NEGATIVE (NEGATIVE); URINE SPECIFIC GRAVITY 1.008; UROBILINOGEN,URINE NEGATIVE mg/dL (<2.0)
--- NOTE | 2017-01-22 12:27 | ER Document Report ---
ED General - General Chief Complaint: Flank Pain Stated Complaint: FLANK PAIN Time Seen by Provider: 01/22/17 10:51 Notes: The patient is a 31-year-old male who presents with bilateral flank and leg spasms that started after he was working in a heated room yesterday. 5 months ago, he was admitted for rhabdo and SMOOTH after working in the hot sun and he is concerned that he has similar symptoms. Patient denies chest pain, shortness of breath, drug use, fevers, numbness, tingling, change in bowel or bladder or difficulty walking. TRAVEL OUTSIDE OF THE [place] IN LAST 30 DAYS: No - Related Data Allergies/Adverse Reactions: Penicillins Allergy (Verified 01/22/17 10:31) Past Medical History - General Information source: Patient - Social History Smoking Status: Former Smoker Chew tobacco use (# tins/day): No Frequency of alcohol use: None Drug Abuse: None Family History: Arthritis, CVA, Hypertension Patient has suicidal ideation: No Patient has homicidal ideation: No Pulmonary Medical History: Reports: Hx Bronchitis, Hx Pneumonia Renal/ Medical History: Denies: Hx Peritoneal Dialysis GI Medical History: Reports: Hx Gastroesophageal Reflux Disease, Hx Irritable Bowel, Hx Ulcer, Hx Endoscopy Musculoskeltal Medical History: Reports Hx Musculoskeletal Deformity, Reports Hx Musculoskeletal Trauma Psychiatric Medical History: Reports: Hx Anxiety, Hx Depression - anxiety, panic attacks Traumatic Medical History: Reports: Hx Fractures - Left elbow and point rotator cuff - Immunizations Immunizations up to date: Yes Hx Diphtheria, Pertussis, Tetanus Vaccination: Yes Review of Systems - Review of Systems Notes: REVIEW OF SYSTEMS: CONSTITUTIONAL: -fevers, -chills EENT: -eye pain, -difficulty swallowing, -nasal congestion CARDIOVASCULAR:-chest pain, -syncope. RESPIRATORY: -cough, -SOB GASTROINTESTINAL: -abdominal pain, - nausea, -vomiting, -diarrhea GENITOURINARY: -dysuria, -hematuria MUSCULOSKELETAL: +back pain, -neck pain, +B/L leg spasming SKIN: -rash or skin lesions. HEMATOLOGIC: -easy bruising or bleeding. LYMPHATIC: -swollen, enlarged glands. NEUROLOGICAL: -altered mental status or loss of consciousness, -headache, - neurologic symptoms PSYCHIATRIC: -anxiety, -depression. ALL OTHER SYSTEMS REVIEWED AND NEGATIVE. Physical Exam - Vital signs Vitals: Temp Pulse Resp BP Pulse Ox 98 F 93 24 H 133/100 H 100 11/27/17 10:15 01/22/17 10:15 01/22/17 10:15 01/22/17 10:15 01/22/17 10:15 - Notes Notes: PHYSICAL EXAMINATION: GENERAL: Well-appearing, well-nourished and in no acute distress. HEAD: Atraumatic, normocephalic. EYES: Pupils equal round and reactive to light, extraocular movements intact, sclera anicteric, conjunctiva are normal. ENT: nares patent, oropharynx clear without exudates. Moist mucous membranes. NECK: Normal range of motion, supple without lymphadenopathy LUNGS: Breath sounds clear to auscultation bilaterally and equal. No wheezes rales or rhonchi. HEART: Regular rate and rhythm without murmurs ABDOMEN: Soft, nontender, normoactive bowel sounds. No guarding, no rebound. No masses appreciated. EXTREMITIES: Normal range of motion, no pitting or edema. No cyanosis. NEUROLOGICAL: Cranial nerves grossly intact. Normal speech, normal gait. Normal sensory and motor exams. PSYCH: Normal mood, normal affect. SKIN: Warm, Dry, normal turgor, no rashes or lesions noted. Course - Re-evaluation Re-evalutation: Patient said that he is having intermittent spasming of his back and upper legs since he was working in a hot room. His labs are unremarkable, including a normal CPK and creatinine function. He feels much better after 2 L IVF. Instructed patient to drink plenty of fluids and follow with his primary care physician. Will provide him with NSAIDs and Robaxin for any muscle spasm. He is also requesting 2 days off work. - Vital Signs Vital signs: Temp Pulse Resp BP Pulse Ox 98 F 93 20 114/82 98 01/22/17 10:15 01/22/17 10:15 01/22/17 13:01 01/22/17 13:01 01/22/17 13:01 - Laboratory Result Diagrams: 01/22/17 10:55 01/22/17 10:55 Laboratory results interpreted by me: 01/22/17 11:25 Urine Ketones 20 H Discharge - Discharge Clinical Impression: Muscle spasm Condition: Stable Disposition: HOME, SELF-CARE Additional Instructions: You do not have evidence of rhabdomyolysis or acute renal failure today. Drink plenty of water and take Naprosyn for pain relief and Robaxin for muscle spasms. Follow with your primary care physician for further evaluation and treatment. Myalagia (Muscle Pain) Myalgia is pain in the muscles. We use the word myalgia to describe muscle pain where there's no history of injury, no known muscle disease, and the muscles are normal to examination. Myalgias can be a symptom of an acute illness , such as influenza, hepatitis, or any viral illness, especially with fever. Sometimes the muscle pain comes before any other symptoms. Myalgia can also be an early symptom of inflammatory muscle disease, such as lupus. If myalgia is accompanied by an acute illness that explains the muscle pain , then no further testing needs to be done. When there's no clear reason for the pain, tests may be done to see if there's an inflammatory or other disease of the muscles. The usual treatment for myalgias is anti-inflammatory medication, such as ibuprofen. Muscle aches may be soothed with a heating pad or hot compress. If muscles remain painful for more than a few days, you'll need testing and followup. Return if a muscle becomes swollen, red, or severely painful. Prescriptions: Methocarbamol [Robaxin 500 mg Tablet] 500 mg PO Q4H PRN #15 tablet PRN Reason: Naproxen [Naprosyn 250 mg Tablet] 500 mg PO Q12H PRN #30 tablet PRN Reason: Ondansetron [Zofran Odt 4 mg Tablet] 1 - 2 tab PO Q4H PRN #15 tab.rapdis PRN Reason: For Nausea/Vomiting Forms: Elevated Blood Pressure, Return to Work Referrals: [facility] [Outside] - Follow up as needed
[2017-01-22 13:10] VITALS: BP 114/82
== END 2017-01-22 13:20 | disposition home or self-care (01) ==
LOC: ER 10:11
DX: M62.838 Other muscle spasm (principal); R10.9 Unspecified abdominal pain; Z87.891 Personal history of nicotine dependence
CPT/HCPCS: 99284; 96361; 96374; 96375; 36415; 82550; 85025; 80053; 81001; J3490; J1885; J2405; J7030

== ENCOUNTER 2017-03-27 17:17 | Emergency (ER) | payer SELFPAY ==
[2017-03-27] MEDS ORDERED: MORPHINE SULFATE 10 MG/ML INJ IV ONE (19:19)
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
[2017-03-27 20:07] LABS: ABSOLUTE EOSINOPHILS # (AUTO) 0.1 10^3/uL (0.0-0.6); ABSOLUTE LYMPHOCYTES (AUTO) 1.3 10^3/uL (0.5-4.7); ABSOLUTE NEUT (AUTO) 4.7 10^3/uL (1.7-8.2); BASOPHILS % (AUTO) 0.4 % (0-2); EOSINOPHILS % (AUTO) 1.5 % (0-6); HEMATOCRIT 43.3 % (37.9-51.0); HEMOGLOBIN 14.8 g/dL (13.5-17.0); LYMPHOCYTES % (AUTO) 18.1 % (13-45); MEAN CORPUSCULAR HEMOGLOBIN 32.3 pg (27.0-33.4); MEAN CORPUSCULAR HGB CONC 34.1 g/dL (32.0-36.0); MEAN CORPUSCULAR VOLUME 95 fl (80-97); MONOCYTES % (AUTO) 13.7 % (3-13); PLATELET COUNT 162 10^3/uL (150-450); RED BLOOD COUNT 4.57 10^6/uL (4.35-5.55); RED CELL DISTRIBUTION WIDTH 12.9 % (11.5-14.0); SEGMENTED NEUTROPHILS % (AUTO) 66.3 % (42-78); TOTAL CELLS COUNTED % (AUTO) 100 %; WHITE BLOOD COUNT 7.1 10^3/uL (4.0-10.5)
[2017-03-27 20:26] LABS: ALANINE AMINOTRANSFERASE 38 U/L (21-72); ALBUMIN 4.4 g/dL (3.5-5.0); ALKALINE PHOSPHATASE 54 U/L (38-126); ASPARTATE AMINO TRANSFERASE 39 U/L (17-59); BILIRUBIN,DIRECT 0.3 mg/dL (0.0-0.4); BILIRUBIN,TOTAL 0.6 mg/dL (0.2-1.3); BLOOD UREA NITROGEN 11 mg/dL (7-20); CALCIUM 9.2 mg/dL (8.4-10.2); GLUCOSE 118 mg/dL (75-110)
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
[2017-03-27 20:50] LABS: ANION GAP 6 (5-19); CARBON DIOXIDE 29 mmol/L (22-30); CHLORIDE 102 mmol/L (98-107); POTASSIUM 4.1 mmol/L (3.6-5.0); SODIUM 137.2 mmol/L (137-145)
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
[2017-03-27] MEDS ORDERED: HYDROCODONE/ACETAMINOPHEN 5-325 MG (6 TAB/ER DISP) PO PRN (21:53)
[2017-03-27 22:16] VITALS: BP 123/76
--- NOTE | 2017-03-28 08:09 | EKG REPORT ---
SEVERITY:- BORDERLINE ECG - SINUS RHYTHM CONSIDER ANTERIOR INFARCT : Confirmed by: Marky Chowdary MD 28-Mar-2017 08:08:49
== END 2017-03-27 22:09 | disposition home or self-care (01) ==
LOC: ER 17:17
DX: R07.9 Chest pain, unspecified (principal); M25.511 Pain in right shoulder; M79.641 Pain in right hand; V86.55XA Driver of 3- or 4- wheeled all-terrain vehicle (ATV) injured in nontraffic accident, initial encounter; Z88.0 Allergy status to penicillin
CPT/HCPCS: 93005; 99285; 96374; 36415; 85025; 80053; 73130; 73030; 70450; 72125; 71260; 74177; 93010; J2270

== ENCOUNTER 2017-04-22 23:03 | Emergency (ER) | payer SELFPAY ==
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
[2017-04-22] MEDS ORDERED: KETOROLAC TROMETHAMINE INJ/PF 30 MG/1 ML SDV IM ONE (23:54)
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
[2017-04-23 00:28] VITALS: BP 119/72
== END 2017-04-23 00:29 | disposition home or self-care (01) ==
LOC: ER 23:03
DX: S46.911A Strain of unspecified muscle, fascia and tendon at shoulder and upper arm level, right arm, initial encounter (principal); S06.0X1A Concussion with loss of consciousness of 30 minutes or less, initial encounter; S16.1XXA Strain of muscle, fascia and tendon at neck level, initial encounter; M25.511 Pain in right shoulder; M54.2 Cervicalgia; M25.512 Pain in left shoulder; X58.XXXA Exposure to other specified factors, initial encounter; F17.200 Nicotine dependence, unspecified, uncomplicated
CPT/HCPCS: 99284; 96372; 73030 ×2; 70450; 72125; J1885